=== PATIENT | male | born 1970 | race Caucasian/White ===

== ENCOUNTER 2016-05-20 18:47 | Observation (INO) | payer OTHER ==
[2016-05-20] VITALS (10 sets, daily range): BP systolic 143–190; BP diastolic 88–116; PULSE 65–88; RESP 16–20; TEMP 96.6–97.9; O2SAT 94–98
[~2016-05-20 18:47] MED LIST: OXYC-360 PO; PRIN10TA PO; PROC10TA4 PO
[2016-05-20] MEDS ORDERED: LABETALOL HCL 100 MG/20 ML VIAL IV PUSH ONE (19:15)
[2016-05-20] MEDS ORDERED: SODIUM CHLORIDE 0.9% FLUSH 5 ML FLUSH IVF PRN ×2 (19:15→21:15)
--- NOTE | 2016-05-20 19:16 | PD ---
HPI Chief Complaint: Neuro Symptoms/ Deficits Time Seen by Provider: 19:06 Travel History International Travel<30 days: No Contact w/Intl Traveler<30days: No Traveled to known affect area: No History of Present Illness HPI 45-year-old male presents to the emergency department by private transportation for evaluation of migraine headache disorder partially one hour prior to arrival to the emergency department but also reports a proximal 3:30 minutes prior to arrival to the emergency department he experienced approximately 10 minutes of difficulty with his speech that has completely resolved this time. Patient reports history of migraine, ocular migraine, and hypertension. Patient has been prescribed lisinopril in the past and more recently has been taking his mother's antihypertensive medication amlodipine. Patient ran out of amlodipine 3 days ago. Patient states headache is typical of a migraine with mild associated photophobia. Patient states his ocular migraine typically is associated with loss of peripheral vision affecting the right eye only. Patient states that has resolved as well. Patient does not report any sudden onset thunderclap or worst ever headache. Patient does not report any loss of vision or double vision. Patient denies does not report any difficulty swallowing or facial droop. Patient reports at this time that his speech is back to normal. Patient states she was talking on the phone to his mother when episode of difficulty with speech occurred. Patient denies any upper or lower extremity numbness tingling or weakness. Patient denies any balance disturbance or ataxia of gait. Patient states with the exception of a 4/10 in intensity headache is typical of one of his migraines he is back to his baseline. Patient denies any associated chest pain shortness of breath palpitations also denies any nausea or vomiting. Patient reports he does not have a local primary care provider and was previously managed by a physician in [place]. [facility] Past Medical History Narrative Medical Hypertension, ocular migraine, migraine; alcohol use no tobacco use; nursing notes reviewed Diminished Hearing: No Hypertension: Yes Myocardial Infarction: Yes (OCCULAR) Tetanus Vaccination: < 5 Years Influenza Vaccination: No ?: Not Past Surgical History Surgical History: No Previous Surgery Social History Alcohol Use: Yes (OCCASIONALLY) Tobacco Use: No Substance Use: No Allergies-Medications (Allergen,Severity, Reaction): Coded Allergies: No Known Allergies (Verified , 11/15/11) Reported Meds & Prescriptions Reported Meds & Active Scripts Active Percocet (Oxycodone/Acetaminophen) 5 Mg/325 Mg Tab 1-2 Tab PO Q4HPRN NEEDED FOR PAIN Compazine (Prochlorperazine Maleate) 10 Mg Tab 10 Mg PO Q6HPRN Take 1 tablet by mouth every 6 hours as needed for nausea and/or vomiting (generic for compazine) Reported Prinivil (Lisinopril) 10 Mg Tab 20 Mg PO DAILY Narrative Medication Previously on lisinopril, mother's amlodipine Review of Systems Except as stated in HPI: all other systems reviewed are Neg General / Constitutional: No: Fever, Chills Eyes: Positive: Blurred Vision, Photophobia, No: Diploplia HENT: Positive: Headaches, No: Vertigo, Lightheadedness, Congestion, Neck Pain Cardiovascular: No: Chest Pain or Discomfort, Palpitations, Syncope Respiratory: No: Shortness of Breath Gastrointestinal: No: Nausea, Vomiting Genitourinary: No: Flank Pain Musculoskeletal: No: Weakness, Pain Skin: No Rash Neurologic: Positive: Headache, Slurred Speech (transient has resolved at this time), No: Weakness, Dizziness, Syncope, Focal Abnormalities, Change in Mentation, Paresthesia, Incontinence, Sensory Disturbance Psychiatric: No: Anxiety Hematologic/Lymphatic: No: Lymph Node Enlargement Physical Exam Narrative GENERAL: Well-developed well-nourished articulate adult male in no acute distress no respiratory distress; GCS 15. SKIN: Warm and dry. HEAD: Atraumatic. Normocephalic. EYES: Pupils equal and round. Extraocular muscles intact. No scleral icterus. No injection or drainage. ENT: No nasal bleeding or discharge. Mucous membranes pink and moist. NECK: Trachea midline. No JVD. Supple. CARDIOVASCULAR: Regular rate and rhythm. RESPIRATORY: No accessory muscle use. Clear to auscultation. Breath sounds equal bilaterally. GASTROINTESTINAL: Abdomen soft, non-tender, nondistended. Hepatic and splenic margins not palpable. MUSCULOSKELETAL: Extremities without clubbing, cyanosis, or edema. No obvious deformities. NEUROLOGICAL: Awake and alert. No obvious cranial nerve deficits. Motor grossly within normal limits. Five out of 5 muscle strength in the arms and legs. Sensory exam grossly intact bilateral upper extremities and lower extremities. No limb ataxia. DTRs 2+ and symmetric. Normal speech. NIHSS:0 PSYCHIATRIC: Appropriate mood and affect; insight and judgment normal. Data Data Last Documented VS Vital Signs Date Time Temp Pulse Resp B/P Pulse Ox O2 Delivery O2 Flow Rate FiO2 05/20/16 20:30 98 05/20/16 20:25 20 05/20/16 20:00 151/90 05/20/16 19:04 88 05/20/16 18:57 97.9 Orders Electrocardiogram (05/20/16 19:06) Prothrombin Time / Inr (Pt) (05/20/16 19:06) Act Partial Throm Time (Ptt) (05/20/16 19:06) Complete Blood Count With Diff (05/20/16 19:06) Basic Metabolic Panel (Bmp) (05/20/16 19:06) Troponin I (05/20/16 19:06) Ua Includes Microscopic (05/20/16 19:06) Ct Brain W/O Iv Contrast(Rout) (05/20/16 19:06) Chest, Single Ap (05/20/16 19:06) Ecg Monitoring (05/20/16 19:06) Iv Access Insert/Monitor (05/20/16 19:06) Oximetry (05/20/16 19:06) Sodium Chloride 0.9% Flush (Ns Flush) (05/20/16 19:15) Labetalol Inj (Trandate Inj) (05/20/16 19:15) Mra Brain W/O Contrast (Cow) (05/20/16 ) Mri Brain W&W/O Contrast (05/20/16 ) Place In Observation (05/20/16 ) Vital Signs (Adult) Q4H (05/20/16 19:58) Activity Oob Ad Nimisha (05/20/16 19:58) Quartz Orientator / Telemetry .CONTINUOUS (05/20/16 19:58) Diet Regular Basic (05/21/16 Breakfast) Sodium Chlor 0.9% 1000 Ml Inj (Ns 1000 M (05/20/16 19:58) Sodium Chloride 0.9% Flush (Ns Flush) (05/20/16 20:00) Sodium Chloride 0.9% Flush (Ns Flush) (05/20/16 21:00) Ondansetron Inj (Zofran Inj) (05/20/16 20:00) Bisacodyl Supp (Dulcolax Supp) (05/20/16 20:00) Comprehensive Metabolic Panel (05/21/16 06:00) Complete Blood Count With Diff (05/21/16 06:00) Scd Bilateral/Knee High ANETA.BID (05/20/16 19:58) [place] Bilateral/Knee High ANETA.QSHIFT (05/20/16 19:58) Acetaminophen (Tylenol) (05/20/16 20:00) Acetamin-Hydrocod 325-5 Mg ([place] 5-325 (05/20/16 20:00) Morphine Inj (Morphine Inj) (05/20/16 20:00) Consult Neurology (05/20/16 ) Prochlorperazine Inj (Compazine Inj) (05/20/16 20:00) Diphenhydramine Inj (Benadryl Inj) (05/20/16 20:00) Ondansetron Inj (Zofran Inj) (05/20/16 20:45) Morphine Inj (Morphine Inj) (05/20/16 20:45) Aspirin (Aspirin) (05/20/16 20:45) (Hub Use Only)Inp Phy Cons/Ref (05/20/16 ) Admit Order (Ed Use Only) (05/20/16 ) ^ Saline Lock (05/20/16 21:12) Resp Oxygen Jon C Titrat 1-4 L (05/20/16 ) ^ Notify Dr: Other (05/20/16 21:12) Sodium Chloride 0.9% Flush (Ns Flush) (05/21/16 09:00) Sodium Chloride 0.9% Flush (Ns Flush) (05/20/16 21:15) Labs Laboratory Tests Test 05/20/16 19:00 White Blood Count 7.6 TH/MM3 Red Blood Count 4.92 MIL/MM3 Hemoglobin 15.5 GM/DL Hematocrit 45.0 % Mean Corpuscular Volume 91.4 FL Mean Corpuscular Hemoglobin 31.6 PG Mean Corpuscular Hemoglobin 34.5 % Concent Red Cell Distribution Width 12.1 % Platelet Count 340 TH/MM3 Mean Platelet Volume 8.0 FL Neutrophils (%) (Auto) 56.1 % Lymphocytes (%) (Auto) 32.5 % Monocytes (%) (Auto) 8.5 % Eosinophils (%) (Auto) 2.2 % Basophils (%) (Auto) 0.7 % Neutrophils # (Auto) 4.2 TH/MM3 Lymphocytes # (Auto) 2.5 TH/MM3 Monocytes # (Auto) 0.6 TH/MM3 Eosinophils # (Auto) 0.2 TH/MM3 Basophils # (Auto) 0.1 TH/MM3 CBC Comment DIFF FINAL Differential Comment Prothrombin Time 10.9 SEC Prothromb Time International 1.0 RATIO Ratio Activated Partial 27.8 SEC Thromboplast Time Sodium Level 141 MEQ/L Potassium Level 3.7 MEQ/L Chloride Level 106 MEQ/L Carbon Dioxide Level 26.5 MEQ/L Anion Gap 9 MEQ/L Blood Urea Nitrogen 20 MG/DL Creatinine 1.20 MG/DL Estimat Glomerular Filtration 65 ML/MIN Rate Random Glucose 99 MG/DL Calcium Level 8.5 MG/DL Troponin I LESS THAN 0.02 NG/ML MDM Medical Decision Making Medical Screen Exam Complete: Yes Emergency Medical Condition: Yes Medical Record Reviewed: Yes Interpretation(s) EKG normal sinus rhythm rate [address] elevation or injury pattern change noted significant artifact is noted at baseline. cbc: wnl bmp: wnl except bun 20 mildly elevated and gfr 65 coags: wnl trop I: less than 0.02, not elevated Differential Diagnosis Cephalgia, recurrent MIGRAINE, TIA, CVA, ICH, UNCONTROLLED HYPERTENSION, malignant hypertension Narrative Course Patient placed on cafeteria monitor IV access obtained blood pressures obtain remain elevated; neurologic exam performed an NIHSS assessment: 0; ordered for stat CT brain noncontrast and labetalol 10 mg IV; patient has no neurologic focality at this time except for voiced complaint of headache typical of his migraines and presently for over 10 intensity but does remain hypertensive, does not meet stroke alert criteria at this time. @ 19:40 patient has returned from CT remains asymptomatic except for his 4/10 migraine headache and repeat BP: left 161/89 and right 157/92 @ 19:55 CT brain w/o negative for acute process no visual complaints except his left frontal migraine headache pain and his typical associated photophobia; patient aware of imaging, ekg and lab results; in view of episode of speech disturbance will admit for tia as well as migraine Case discussed with [facility] MD --will admit as OBS to [facility] service --if possible MR studies tonight otherwise will order them for the AM Patient administered zofran 4 mg iv and morphine sulfate 3 mg iv for migraine and one time dose aspirin 325mg Physician Communication Physician Communication discussed with Dr Mims --obs admit for tia Diagnosis Primary Impression: TIA (transient ischemic attack) Qualified Code: G45.9 - Transient cerebral ischemia, unspecified type Additional Impressions: Ocular migraine Hypertension Qualified Code: I10 - Essential hypertension H/O migraine Admitting Information Admitting Physician Requests: Observation Addis Chatman MD May 20, 2016 19:16
[2016-05-20 19:23] LABS: AUTOMATED NEUTROPHIL # 4.2 TH/MM3 (1.8-7.7); BASOPHIL # 0.1 TH/MM3 (0-0.2); BASOPHIL % 0.7 % (0.0-2.0); EOSINOPHIL # 0.2 TH/MM3 (0-0.4); EOSINOPHIL % 2.2 % (0.0-4.0); HEMO FLAGS DIFF FINAL; LYMPH % 32.5 % (9.0-44.0); LYMPHOCYTE # 2.5 TH/MM3 (1.0-4.8); MEAN CELL VOLUME 91.4 FL (80.0-100.0); MEAN CORPUSCULAR HEMOGLOBIN 31.6 PG (27.0-34.0); MEAN CORPUSCULAR HGB CONC 34.5 % (32.0-36.0); MONO % 8.5 % (0.0-8.0); NEUT % 56.1 % (16.0-70.0); PLATELET COUNT 340 TH/MM3 (150-450); RED BLOOD COUNT 4.92 MIL/MM3 (4.50-5.90); RED CELL DISTRIBUTION WIDTH 12.1 % (11.6-17.2); WHITE BLOOD COUNT 7.6 TH/MM3 (4.0-11.0)
[2016-05-20 19:28] LABS: CHLORIDE 106 MEQ/L (98-107); POTASSIUM 3.7 MEQ/L (3.5-5.1); SODIUM (NA) 141 MEQ/L (136-145)
[2016-05-20 19:31] LABS: ANION GAP 9 MEQ/L (5-15); BICARBONATE 26.5 MEQ/L (21.0-32.0); BLOOD UREA NITROGEN 20 MG/DL (7-18)
[2016-05-20 19:33] LABS: APTT (PATIENT) 27.8 SEC (24.3-30.1); PROTHROMBIN TIME - PATIENT 10.9 SEC (9.8-11.6)
[2016-05-20 19:34] LABS: GLOMERULAR FILTRATION RATE 65 ML/MIN (>89)
--- NOTE | 2016-05-20 19:43 | RADHPO ---
EXAM DATE/TIME: 05/20/2016 19:23 [facility] COMPARISON: No previous studies available for comparison. INDICATIONS : Episode of dysphasia and cephalgia today. RADIATION DOSE: 61.56 CTDIvol (mGy) MEDICAL HISTORY : Hypertension. SURGICAL HISTORY : None. ENCOUNTER: Initial ACUITY: 1 day PAIN SCALE: 7/10 LOCATION: Left frontal head TECHNIQUE: Multiple contiguous axial images were obtained of the head. Using automated exposure control and adj ustment of the mA and/or kV according to patient size, radiation dose was kept as low as reasonably a chievable to obtain optimal diagnostic quality images. FINDINGS: CEREBRUM: The ventricles are normal for age. No evidence of midline shift, mass lesion, hemorrhage or acute in farction. No extra-axial fluid collections are seen. POSTERIOR FOSSA: The cerebellum and brainstem are intact. The 4th ventricle is midline. The cerebellopontine angle i s unremarkable. EXTRACRANIAL: The visualized portion of the orbits is intact. SKULL: The calvaria is intact. No evidence of skull fracture. CONCLUSION: Negative noncontrast CT brain. Daniel Nesbitt MD on May 20, 2016 at 19:41 Board Certified Radiologist. This report was verified electronically.
--- NOTE | 2016-05-20 19:53 | RADHPO ---
EXAM DATE/TIME: 05/20/2016 19:24 [facility] COMPARISON: No previous studies available for comparison. INDICATIONS : CVA, migraine and elevated blood pressure. MEDICAL HISTORY : Hypertension. SURGICAL HISTORY : None. ENCOUNTER: Initial ACUITY: 1 day PAIN SCORE: 4/10 LOCATION: Left anterior head. FINDINGS: A single view of the chest demonstrates the lungs to be symmetrically aerated without evidence of mas s, infiltrate or effusion. The cardiomediastinal contours are unremarkable. Osseous structures are intact. CONCLUSION: The lungs are clear. Daniel Nesbitt MD on May 20, 2016 at 19:52 Board Certified Radiologist. This report was verified electronically.
[2016-05-20] MEDS ORDERED: diphenhydrAMINE HCL 50 MG/ML VIAL IV PUSH PRN (20:00)
[2016-05-20] MEDS ORDERED: SODIUM CHLORIDE 0.9% FLUSH 5 ML FLUSH FLUSH PRN (20:00)
[2016-05-20] MEDS ORDERED: ACETAMINOPHEN 325 MG TAB PO PRN (20:00)
[2016-05-20] MEDS ORDERED: ONDANSETRON HCL 4 MG/2 ML VIAL IVP PRN (20:00)
[2016-05-20] MEDS ORDERED: MORPHINE SULFATE 4 MG/ML INJ IV PRN (20:00)
[2016-05-20] MEDS ORDERED: BISACODYL 10 MG SUPP PR PRN (20:00)
[2016-05-20] MEDS ORDERED: ACETAMINOPHEN/HYDROcodone 325 MG/5 MG TAB PO PRN (20:00)
[2016-05-20] MEDS ORDERED: PROCHLORPERAZINE INJ 10 MG/2 ML VIAL IVS PRN (20:00)
[2016-05-20] MEDS ORDERED: ONDANSETRON HCL 4 MG/2 ML VIAL IV PUSH ONE (20:45)
[2016-05-20] MEDS ORDERED: ASPIRIN 325 MG TAB PO ONE (20:45)
[2016-05-20] MEDS ORDERED: MORPHINE SULFATE 4 MG/ML INJ IV PUSH ONE (20:45)
[2016-05-20] MEDS: SODIUM CHLOR 0.9% 1000 ML INJ 1,000 ML IV SCH (20:57)
[2016-05-20] MEDS: SODIUM CHLORIDE 0.9% FLUSH 5 ML FLUSH FLUSH SCH (21:12)
[2016-05-21] VITALS (14 sets, daily range): BP systolic 120–138; BP diastolic 85–89; PULSE 59–82; RESP 16–18; TEMP 96.5–97.7; O2SAT 93–96
[2016-05-21] MEDS: SODIUM CHLOR 0.9% 1000 ML INJ 1,000 ML IV SCH ×2 (05:58→14:42)
[2016-05-21 07:25] LABS: BLOOD, URINE NEG (NEG); GLUCOSE,URINE NEG (NEG); KETONE, URINE NEG (NEG); NITRITE,URINE NEG (NEG)
[2016-05-21 07:29] LABS: METHOD OF COLLECTION CATH; URINE COLOR YELLOW (YELLW/STRAW)
[2016-05-21 07:30] LABS: SQUAMOUS EPITHELIAL CELL URINE 0-5 /hpf (0-5)
[2016-05-21 07:48] LABS: AUTOMATED NEUTROPHIL # 2.5 TH/MM3 (1.8-7.7); BASOPHIL % 0.7 % (0.0-2.0); EOSINOPHIL # 0.2 TH/MM3 (0-0.4); EOSINOPHIL % 3.5 % (0.0-4.0); HEMATOCRIT 41.7 % (39.0-51.0); HEMO FLAGS DIFF FINAL; LYMPH % 37.9 % (9.0-44.0); LYMPHOCYTE # 1.9 TH/MM3 (1.0-4.8); MEAN CELL VOLUME 92.6 FL (80.0-100.0); MEAN CORPUSCULAR HEMOGLOBIN 30.7 PG (27.0-34.0); MEAN CORPUSCULAR HGB CONC 33.2 % (32.0-36.0); MONO % 8.9 % (0.0-8.0); PLATELET COUNT 274 TH/MM3 (150-450); RED CELL DISTRIBUTION WIDTH 12.2 % (11.6-17.2)
[2016-05-21 07:58] LABS: CHLORIDE 109 MEQ/L (98-107); POTASSIUM 4.4 MEQ/L (3.5-5.1); SODIUM (NA) 144 MEQ/L (136-145)
[2016-05-21 08:04] LABS: ANION GAP 6 MEQ/L (5-15); BICARBONATE 28.9 MEQ/L (21.0-32.0); BLOOD UREA NITROGEN 16 MG/DL (7-18)
[2016-05-21 08:07] LABS: ALT (GPT) 28 U/L (12-78); AST (GOT) 13 U/L (15-37); GLOMERULAR FILTRATION RATE 81 ML/MIN (>89)
[2016-05-21 08:08] LABS: TOTAL BILIRUBIN ADULT 0.8 MG/DL (0.2-1.0)
[2016-05-21 08:10] LABS: ALKALINE PHOSPHATASE 51 U/L (45-117)
[2016-05-21] MEDS: SODIUM CHLORIDE 0.9% FLUSH 5 ML FLUSH FLUSH SCH (08:20)
[2016-05-21] MEDS ORDERED: SODIUM CHLORIDE 0.9% FLUSH 5 ML FLUSH IVF SCH (09:00)
[2016-05-21] MEDS ORDERED: GADODIAMIDE PF 287 MG/ML 5 ML VIAL (for RAD MRI) IV ONE (09:52)
--- NOTE | 2016-05-21 10:25 | RADHPO ---
EXAM DATE/TIME: 05/21/2016 09:53 [facility] COMPARISON: No previous studies available for comparison. INDICATIONS : Aphasia. Migraine. MEDICAL HISTORY : Hypertension. SURGICAL HISTORY : Orbital bone repair. ENCOUNTER: Initial ACUITY: 1 day PAIN SCORE: 0/10 LOCATION: cranial Please note a normal MRA of the brain does not entirely exclude the possibility of a small aneurysm, nor the possibility of distal intracranial vessel disease. TECHNIQUE: 3D time of flight MRA was performed. Source images, multiplanar STS MIP, and 3D volume MIP reconstru ctions were reviewed. FINDINGS: There is excellent visualization of the major intracranial arteries out to the second-order branch ve ssels. There is no evidence for aneurysm, vessel truncation or stenosis, and no evidence for vascula r malformation. There is a patent right posterior communicating artery. CONCLUSION: Normal examination for a patient of this age. Don Soto MD on May 21, 2016 at 10:22 Board Certified Radiologist. This report was verified electronically.
--- NOTE | 2016-05-21 10:43 | RADHPO ---
EXAM DATE/TIME: 05/21/2016 09:53 [facility] COMPARISON: No previous studies available for comparison. INDICATIONS : Aphasia. Migraine. CONTRAST: 20 cc Omniscan (gadodiamide) IV MEDICAL HISTORY : Hypertension. SURGICAL HISTORY : Orbital bone repair. ENCOUNTER: Initial ACUITY: 1 day PAIN SCORE: 0/10 LOCATION: cranial TECHNIQUE: Multiplanar, multisequence MRI of the brain was performed both prior to and following the administrat ion of paramagnetic contrast. FINDINGS: CEREBRUM: The ventricles are normal for age. No evidence of midline shift, mass lesion, hemorrhage or acute in farction. No extraaxial fluid collections are seen. The pituitary gland and suprasellar cistern are normal in configuration. Possible small lvenous angioma in the left occipital lobe versus some mildl y prominent venous structures.. WHITE MATTER: No significant signal abnormalities are seen in the white matter. POSTERIOR FOSSA: The cerebellum and brainstem are intact. The 4th ventricle is midline. The cerebellopontine angle is unremarkable. The cerebellar tonsils are normal in position. DIFFUSION IMAGING: No focal areas of restricted diffusion are seen. No evidence of acute infarction. EXTRACRANIAL: The visualized portions of the orbits are unremarkable. There is chronic sinus disease predominantly in the right maxillary sinus. POST-CONTRAST: No abnormal areas of parenchymal or dural enhancement. No evidence of blood-brain barrier breakdown. CONCLUSION: 1. No focal or acute intracranial pathology. 2. Questionable small venous angioma in the left occipital lobe versus mildly prominent venous struct ures. 3. Sinus disease in the right maxillary sinus. Don Soto MD on May 21, 2016 at 10:37 Board Certified Radiologist. This report was verified electronically.
--- NOTE | 2016-05-21 13:10 | EKG ---
Date Performed: 05/20/2016 Time Performed: 19:12:56 PTAGE: 45 years EKG: Sinus rhythm . Lead(s) unsuitable for analysis: V1 Inferior T wave changes are nonspecific Borderline ECG Compared to prior tracing no significant change PREVIOUS TRACING : 11/15/2011 15.05 DOCTOR: Jorge Alberto Cruz Interpretating Date/Time 05/21/2016 13:08:51
[2016-05-21] MEDS ORDERED: PRIN20TA2 PO (14:24)
--- NOTE | 2016-05-21 14:24 | HHI.DCPOC ---
Discharge Care Plan Diagnosis: (1) TIA (transient ischemic attack) (2) Hypertension Goals to Promote Your Health * To prevent worsening of your condition and complications * To maintain your health at the optimal level Directions to Meet Your Goals Take your medications as prescribed Follow your dietary instruction Follow activity as directed Keep your appointments as scheduled Take your immunizations and boosters as scheduled If your symptoms worsen call your PCP, if no PCP go to Urgent Care Center or Emergency Room Smoking is Dangerous to Your Health. Avoid second hand smoke Call the 24-hour hour crisis hotline for domestic abuse at Cindy Castorena MD May 21, 2016 14:24
[2016-05-21] MEDS ORDERED: LISINOPRIL 20 MG TAB PO SCH (14:30)
--- NOTE | 2016-05-21 14:31 | HHI.HP ---
[facility]PI [facility] Primary [facility]ician No Primary Care Physician Admission Diagnosis TIA; migraine; HTN Diagnoses: Chief Complaint: Headache Travel History International Travel<30 Days: No Contact w/Intl Traveler <30 Da: No Traveled to Known Affected Are: No History of Present Illness This patient is a 45-year-old gentleman who was seen and evaluated in emergency room after his mother thought he wasn't speaking clearly. Patient is 45 a known history of migraine and hypertension. He had been out of his home blood pressure medicine lisinopril for several weeks to months and had been borrowing his mothers amlodipine for blood pressure control. He felt as if he was having a migraine attack and called his mom Sunita was the medicine but his mom says that he can get any of the words out and so she had him come to the emergency room. The patient says that he had the usual headache that he gets with his migraine triggered his blood pressure was up although he does not take it with his home blood pressure monitoring machine. On arrival here his blood pressure was 187/116. Patient's speech had resolved back to normal and his headache was better by the time he got to the emergency room. Headache improved also dramatically with morphine here in the emergency room. Patient has had imaging studies of his head and neck and brain which are unremarkable for acute stroke. Patient will need to continue follow-up with his primary care physician Review of Systems Constitutional: DENIES: Diaphoretic episodes, Fatigue, Fever, Weight gain, Weight loss, Chills, Dizziness, Change in appetite, Night Sweats Endocrine: DENIES: Heat/cold intolerance, Polydipsia, Polyuria, Polyphagia Eyes: DENIES: Blurred vision, Diplopia, Eye inflammation, Eye pain, Vision loss , Photosensitivity, Double Vision Ears, nose, mouth, throat: DENIES: Tinnitus, Hearing loss, Vertigo, Nasal discharge, Oral lesions, Throat pain, Hoarseness, Ear Pain, Running Nose, Epistaxis, Sinus Pain, Toothache, Odynophagia Respiratory: DENIES: Apneas, Cough, Snoring, Wheezing, Hemoptysis, Sputum production, Shortness of breath Cardiovascular: DENIES: Chest pain, Palpitations, Syncope, Dyspnea on Exertion , PND, Lower Extremity Edema, Orthopnea, Claudication Gastrointestinal: DENIES: Abdominal pain, Black stools, Bloody stools, Constipation, Diarrhea, Nausea, Vomiting, Difficulty Swallowing, Anorexia Genitourinary: DENIES: Sexual dysfunction, Urinary frequency, Urinary incontinence, Urgency, Hematuria, Dysuria, Nocturia, Penile Discharge, Testicular Pain, Testicular Swelling Musculoskeletal: DENIES: Joint pain, Muscle aches, Stiffness, Joint Swelling, Back pain, Neck pain Integumentary: DENIES: Abnormal pigmentation, Nail changes, Pruritus, Rash Hematologic/lymphatic: DENIES: Bruising, Lymphadenopathy Immunologic/allergic: DENIES: Eczema, Urticaria Neurologic: COMPLAINS OF: Headache, DENIES: Abnormal gait, Localized weakness , Paresthesias, Seizures, Speech Problems, Tremor, Poor Balance Psychiatric: DENIES: Anxiety, Confusion, Mood changes, Depression, Hallucinations, Agitation, Suicidal Ideation, Homicidal Ideation, Delusions Past Family Social History Past Medical History Hypertension Migraine Chronic narcotic use Past Surgical History Denies Reported Medications Reviewed in the medical record, ran out of his home lisinopril and had been taking his mothers amlodipine Allergies: Coded Allergies: No Known Allergies (Verified , 11/15/11) Active Ordered Medications Reviewed in the medical record Family History Mother and grandmother all have migraine, grandmother had a stroke Social History No current tobacco or alcohol dependency, 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 Physical Exam Vital Signs Vital Signs Date Time Temp Pulse Resp B/P Pulse Ox O2 Delivery O2 Flow Rate FiO2 05/21/16 12:37 62 05/21/16 12:00 97.7 62 16 138/88 96 05/21/16 08:58 93 21 05/21/16 08:15 64 05/21/16 08:00 97.6 59 16 120/88 96 05/21/16 05:00 61 05/21/16 04:22 96.6 68 18 128/85 95 05/21/16 04:00 62 05/21/16 03:00 68 05/21/16 02:00 73 05/21/16 01:00 82 05/21/16 00:00 96.5 70 18 133/85 96 05/21/16 00:00 69 05/20/16 23:00 82 05/20/16 22:37 96 21 05/20/16 22:30 67 05/20/16 22:05 68 16 143/88 96 Room Air 05/20/16 21:03 68 20 150/88 05/20/16 20:30 98 05/20/16 20:25 20 05/20/16 20:00 96.6 65 18 144/90 94 05/20/16 20:00 151/90 05/20/16 19:40 157/92 161/89 05/20/16 19:04 88 20 190/114 98 163/96 05/20/16 18:57 97.9 84 20 187/116 98 Physical Exam GENERAL: This is a well-nourished, well-developed patient, in no apparent distress. SKIN: No rashes, ecchymoses or lesions. Cool and dry. HEAD: Atraumatic. Normocephalic. No temporal or scalp tenderness. EYES: Pupils equal round and reactive. Extraocular motions intact. No scleral icterus. No injection or drainage. ENT: Nose without bleeding, purulent drainage or septal hematoma. Throat without erythema, tonsillar hypertrophy or exudate. Uvula midline. Airway patent. NECK: Trachea midline. No JVD or lymphadenopathy. Supple, nontender, no meningeal signs. CARDIOVASCULAR: Regular rate and rhythm without murmurs, gallops, or rubs. RESPIRATORY: Clear to auscultation. Breath sounds equal bilaterally. No wheezes , rales, or rhonchi. GASTROINTESTINAL: Abdomen soft, non-tender, nondistended. No hepato-splenomegaly , or palpable masses. No guarding. MUSCULOSKELETAL: Extremities without clubbing, cyanosis, or edema. No joint tenderness, effusion, or edema noted. No calf tenderness. Negative Homans sign bilaterally. NEUROLOGICAL: Awake and alert. Cranial nerves II through XII intact. Motor and sensory grossly within normal limits. Five out of 5 muscle strength in all muscle groups. Normal speech. Laboratory Laboratory Tests Test 05/20/16 05/21/16 05/21/16 19:00 06:38 07:15 White Blood Count 7.6 5.0 Red Blood Count 4.92 4.50 Hemoglobin 15.5 13.8 Hematocrit 45.0 41.7 Mean Corpuscular Volume 91.4 92.6 Mean Corpuscular Hemoglobin 31.6 30.7 Mean Corpuscular Hemoglobin 34.5 33.2 Concent Red Cell Distribution Width 12.1 12.2 Platelet Count 340 274 Mean Platelet Volume 8.0 8.1 Neutrophils (%) (Auto) 56.1 49.0 Lymphocytes (%) (Auto) 32.5 37.9 Monocytes (%) (Auto) 8.5 8.9 Eosinophils (%) (Auto) 2.2 3.5 Basophils (%) (Auto) 0.7 0.7 Neutrophils # (Auto) 4.2 2.5 Lymphocytes # (Auto) 2.5 1.9 Monocytes # (Auto) 0.6 0.4 Eosinophils # (Auto) 0.2 0.2 Basophils # (Auto) 0.1 0.0 CBC Comment DIFF FINAL DIFF FINAL Differential Comment Prothrombin Time 10.9 Prothromb Time International 1.0 Ratio Activated Partial 27.8 Thromboplast Time Sodium Level 141 144 Potassium Level 3.7 4.4 Chloride Level 106 109 Carbon Dioxide Level 26.5 28.9 Anion Gap 9 6 Blood Urea Nitrogen 20 16 Creatinine 1.20 1.00 Estimat Glomerular Filtration 65 81 Rate Random Glucose 99 88 Calcium Level 8.5 8.1 Troponin I LESS THAN 0.02 Total Bilirubin 0.8 Aspartate Amino Transf 13 (AST/SGOT) Alanine Aminotransferase 28 (ALT/SGPT) Alkaline Phosphatase 51 Total Protein 6.1 Albumin 3.1 Urine Collection Type CATH Urine Color YELLOW Urine Turbidity CLEAR Urine pH 6.0 Urine Specific [place] 1.028 Urine Protein NEG Urine Glucose (UA) NEG Urine Ketones NEG Urine Occult Blood NEG Urine Nitrite NEG Urine Bilirubin NEG Urine Leukocyte Esterase NEG Urine WBC 20-24 Urine Squamous Epithelial 0-5 Cells Result Diagram: 05/21/1638 05/21/1638 Imaging Last Impressions Head Magnetic Resonance Angiography 05/21/16 0000 Signed Impressions: Service Date/Time: Saturday, May 21, 2016 09:53 - CONCLUSION: Normal examination for a patient of this age. Don Soto MD Carotid Artery Ultrasound 05/21/16 0000 Signed Impressions: Service Date/Time: Saturday, May 21, 2016 17:10 - CONCLUSION: Normal hemodynamic profile both carotids. Daniel Nesbitt MD Brain MRI 05/21/16 0000 Signed Impressions: Service Date/Time: Saturday, May 21, 2016 09:53 - CONCLUSION: 1. No focal or acute intracranial pathology. 2. Questionable small venous angioma in the left occipital lobe versus mildly prominent venous structures. 3. Sinus disease in the right maxillary sinus. Don Soto MD Head CT 05/20/161905 Signed Impressions: Service Date/Time: Friday, May 20, 2016 19:23 - CONCLUSION: Negative noncontrast CT brain. Daniel Nesbitt MD Chest X-Ray 05/20/161905 Signed Impressions: Service Date/Time: Friday, May 20, 2016 19:24 - CONCLUSION: The lungs are clear. Daniel Nesbitt MD Assessment and Plan Problem List: (1) H/O migraine ICD Code: Z86.69 Status: Acute Plan: The patient will need to follow-up with her primary care provider. He does admit to poor adherence to medical treatment. He has signs and symptoms of of headache related to migraine prior to this event with elevated blood pressure patient is at risk for stroke. (2) Hypertension ICD Code: I10 Status: Acute Plan: Resume patient's lisinopril. Patient is instructed to continue with follow-up as an outpatient. (3) TIA (transient ischemic attack) ICD Code: G45.9 Status: Acute Plan: Acute neurological function may have been a TIA, migraine in transformation or seizure. At this point patient symptoms have resolved. No evidence of infarct on brain imaging. Patient's blood pressure however larab was 197/116. Patient's blood pressure is now improved he will need to continue follow-up for blood pressure control. We'll continue aspirin and lisinopril Assessment and Plan DisCharge home Activity unrestricted Diet heart healthy Discussed Condition With Dr Coreas Patient MOm Problem Qualifiers (1) Hypertension: Qualified Code: I10 - Essential hypertension (2) TIA (transient ischemic attack): Qualified Code: G45.9 - Transient cerebral ischemia, unspecified type Cindy Castorena MD May 21, 2016 14:31
--- NOTE | 2016-05-21 17:54 | RADHPO ---
EXAM DATE/TIME: 05/21/2016 17:10 [place] COMPARISON: No previous studies available for comparison. INDICATIONS : Transient ischemic attack. MEDICAL HISTORY : Hypertension. Occular heart attack. Headache. Sleep apnea. SURGICAL HISTORY : Orbital bone surgery. ENCOUNTER: Initial ACUITY: 2 days PAIN SCORE: 3/10 LOCATION: Bilateral neck PEAK SYSTOLIC VELOCITIES (cm/sec): ICA/CCA RATIO: Right: 0.8 Left: 1.0 ICA: Right: 76 Left: 98 CCA: Right: 92 Left: 98 ECA: Right: 63 Left: 76 VERTEBRAL: Right: 63 antegrade Left: 58 antegrade Elevated flow velocities and ICA/CCA ratios have been found to correlate with increased degrees of vessel stenosis, calculated as percentage of diameter relative to a normal segment of distal ICA/CCA FINDINGS: RIGHT CAROTID: No significant stenosis is visualized. The waveforms are within normal limits. LEFT CAROTID: No significant stenosis is visualized. The waveforms are within normal limits. VERTEBRAL ARTERIES: Antegrade flow is seen in both vertebral arteries. MISCELLANEOUS: None. CONCLUSION: Normal hemodynamic profile both carotids. Daniel Nesbitt MD on May 21, 2016 at 17:52 Board Certified Radiologist. This report was verified electronically.
--- NOTE | 2016-05-21 18:46 | MB ---
cc: MICK COREAS M.D. DATE OF CONSULTATION 05/21/2016 REASON FOR CONSULTATION Jorge Alberto Lopes is a 45-year-old with history of migraine and stroke-like symptoms. HISTORY The patient describes that he came in yesterday. He developed a fairly typical migraine characterized by some right-sided visual field loss and headache. Subsequent to that he was on the phone trying to talk to his mother and he was unable to express himself, seemed to be able to transmit that something was wrong. He was brought in with an elevated blood pressure and his speech disorder improved in 10 minutes or so. He has been fine today, headache is resolved. He describes headaches with visual dysfunction two or three times a year but never had language dysfunction. History of hypertension. Neurologic exam is normal at this point. Reflexes 1-2+. Plantar responses flexor. IMAGING The MRI brain and MRA head were normal with the exception for some questionable venous angioma left occipital lobe and right maxillary sinus disease. LABORATORY DATA CBC is normal. ASSESSMENT Probable complicated migraine headache. Will have a carotid ultrasound before he is discharged. I suggested him to take a baby aspirin daily. I will request lipid profile and encouraged him to follow with local medical doctor for hypertension and general medical care. Thank you for asking us to assist in his care and we will be happy to follow him in the office in a couple of weeks. Mick Coreas MD [facility]/KK /4:58 PM /6:41 PM
[2016-05-21 22:12] LABS: HDL CHOLESTEROL 43.6 MG/DL (40.0-60.0)
[2016-06-20] MEDS ORDERED: LISI10TA3 PO (14:06)
[2016-06-20] MEDS ORDERED: TRAM50TA PO (14:26)
[2016-06-20] MEDS ORDERED: SUMA25TA2 PO (14:26)
== END 2016-05-21 18:44 | disposition home or self-care (01) ==
LOC: PHED 18:47 → UNDOADMOB 21:15 → PHEDA 21:15 → PH3A 22:15 → UNDODISOB 05-21 18:44
PROVIDERS: ADMIT Hospitalist; ATTEND Hospitalist
DX: G45.9 Transient cerebral ischemic attack, unspecified (principal); G43.109 Migraine with aura, not intractable, without status migrainosus; I10 Essential (primary) hypertension; R94.31 Abnormal electrocardiogram [ECG] [EKG]; I25.2 Old myocardial infarction; Z79.891 Long term (current) use of opiate analgesic
CPT/HCPCS: 70450; 70544; 70553; 71010; 80048; 80053; 80061; 81001; 84484; 85025; 85610; 85730; 93005; 93880; 96374; 96375; 99285; A9579; G0378; J2270; J2405; J7030

== ENCOUNTER 2017-06-04 12:09 | Emergency (ER) | payer OTHER ==
[~2017-06-04] VITALS: Ht 182.9 cm; Wt 88.0 kg
[~2017-06-04 12:09] MED LIST changes: +LISI10TA3 PO; +NAPR500T2 PO; -OXYC-360 PO; -PRIN10TA PO; -PROC10TA4 PO
[2017-06-04 12:12] VITALS: BP 183/100; PULSE 87; RESP 16; TEMP 98.1; O2SAT 97
[2017-06-04] MEDS ORDERED: KETOROLAC TROMETHAMINE 60 MG/2 ML (IM) VIAL IM ONE (12:30)
[2017-06-04] MEDS ORDERED: ACETAMINOPHEN/HYDROcodone 325 MG/5 MG TAB PO ONE (12:30)
[2017-06-04] MEDS ORDERED: CYCLOBENZAPRINE HCL 10 MG TAB PO ONE (12:30)
--- NOTE | 2017-06-04 12:40 | PD ---
HPI Chief Complaint: Back/ Neck Pain or Injury Time Seen by Provider: 12:20 Travel History International Travel<30 days: No Contact w/Intl Traveler<30days: No Traveled to known affect area: No History of Present Illness HPI 46-year-old male presents to the ED for evaluation of 10/10 right-sided low back pain, radiating down the outer aspect of the right leg. Pain is constant, sharp when worsened by certain motions. Patient denies saddle anesthesia, fecal/ urinary incontinence. Endorses tingling down the outside of the right leg. Denies weakness, limitation to range of motion. Patient states he's had similar episodes in the past. He can identify no acute injury. States that he has an active job and commutes over an hour to work every day. PFSH Past Medical History Cancer: No Cardiovascular Problems: Yes Diminished Hearing: No Endocrine: No Genitourinary: No Hypertension: Yes Immune Disorder: No Musculoskeletal: No Neurologic: No Psychiatric: No Reproductive: No Respiratory: Yes Myocardial Infarction: Yes (OCCULAR) Sleep Apnea: No (DOES NOT WEAR CPAP) Past Surgical History Eye Surgery: Yes (ORBITAL BONE) Social History Alcohol Use: Yes (OCCASIONALLY) Tobacco Use: No Substance Use: No Allergies-Medications (Allergen,Severity, Reaction): Coded Allergies: No Known Allergies (Verified Adverse Reaction, Unknown, 06/04/17) Reported Meds & Prescriptions Reported Meds & Active Scripts Active Ibuprofen 800 Mg Tab 800 Mg PO Q8H Flexeril (Cyclobenzaprine HCl) 10 Mg Tab 10 Mg PO TID Naproxen 500 Mg Tab 500 Mg PO BID 7 Days Lisinopril 10 Mg Tab 10 Mg PO DAILY Review of Systems Except as stated in HPI: all other systems reviewed are Neg Physical Exam Narrative GENERAL: Well-nourished, well-developed white male in no acute distress. SKIN: Focused skin assessment warm/dry. HEAD: Normocephalic. EYES: No scleral icterus. No injection or drainage. NECK: Supple, trachea midline. No JVD or lymphadenopathy. CARDIOVASCULAR: Regular rate and rhythm without murmurs, gallops, or rubs. RESPIRATORY: Breath sounds equal bilaterally. No accessory muscle use. GASTROINTESTINAL: Abdomen soft, non-tender, nondistended. MUSCULOSKELETAL: No cyanosis, or edema. 5/5 strength of plantarflexion, dorsiflexion, knee and hip flexion bilaterally. BACK: Nontender without obvious deformity. No CVA tenderness. No tenderness to palpation of the sciatic notch. Data Data Last Documented VS Vital Signs Date Time Temp Pulse Resp B/P (MAP) Pulse Ox O2 Delivery O2 Flow Rate FiO2 06/04/17 12:12 98.1 87 16 183/100 (127) 97 Orders Orders Ketorolac Inj (Toradol Inj) (06/04/17 12:30) Cyclobenzaprine (Flexeril) (06/04/17 12:30) Acetamin-Hydrocod 325-5 Mg ([place] 5-325 (06/04/17 12:30) Ed Discharge Order (06/04/17 13:43) [facility] Medical Decision Making Medical Screen Exam Complete: Yes Emergency Medical Condition: Yes Differential Diagnosis Acute on chronic back pain versus sciatica versus muscle spasm versus muscle skeletal pain versus other Narrative Course 46-year-old male presents to the ED for evaluation of 10/10 right-sided low back pain, radiating down the outer aspect of the right leg. Denies red flag symptoms. Endorses similar episodes in the past. He can identify no acute injury. Vitals reviewed. Physical exam reveals no strength deficit in the lower extremities. No midline tenderness of the back. Signs and symptoms consistent with sciatica. Patient's administered IM Toradol, Norflex and 5 mg [place]. On recheck he reports improvement of his symptoms. I spent a few minutes discussing the variable course of sciatica. I prescribed him a short course of anti-inflammatories and muscle relaxants. Patient instructed to return to normal, gentle activity as tolerated, follow with the primary care provider. He is stable and discharged home. Diagnosis Primary Impression: Low back pain with right-sided sciatica Qualified Codes: M54.41 - Lumbago with sciatica, right side Referrals: Primary Care Physician Patient Instructions: Acute Low Back Pain (ED), General Instructions, Sciatica (ED) Departure Forms: Tests/Procedures, Work Release Enter return to work date: Jun 07, 2017 Additional Instructions: A mixture of rest and activity as best for back pain. Return to normal, gentle activity as tolerated. Take medications as prescribed. Do not drive while taking muscle relaxants. Follow-up with your primary care provider. Return to the ED for worsening symptoms or any urgent or emergent medical condition. Med/Other Pt SpecificInfo: Prescription(s) given Scripts Ibuprofen (Ibuprofen) 800 Mg Tab 800 MG PO Q8H, #15 TAB 0 Refills Prov: Fabricio James MD 06/04/17 Cyclobenzaprine (Flexeril) 10 Mg Tab 10 MG PO TID for Muscle Spasm, #15 TAB 0 Refills Prov: Fabricio James MD 06/04/17 Disposition: 01 DISCHARGE HOME Condition: Stable Emmanuelle Toth Jun 04, 2017 12:40
[2017-06-04] MEDS ORDERED: CYCL10TA PO (13:16)
[2017-06-04] MEDS ORDERED: IBUP1TAB7 PO (13:16)
== END 2017-06-04 14:15 | disposition home or self-care (01) ==
LOC: PHEFT 12:09
DX: M54.41 Lumbago with sciatica, right side (principal); I10 Essential (primary) hypertension; I25.2 Old myocardial infarction; Z87.09 Personal history of other diseases of the respiratory system
CPT/HCPCS: 96372; 99284; J1885